=== PATIENT | male | born 1995 | race African-American/Black ===

== ENCOUNTER 2023-06-04 13:26 | Emergency (ER) | payer OTHER ==
[2023-06-04 13:46] VITALS: BP 117/70; PULSE 75; RESP 18; TEMP 99; BMI 23.7
[2023-06-04] MEDS ORDERED: KETOROLAC TROMETHAMINE 30 MG/1 ML VIAL IVPUSH ONE (15:25)
[2023-06-04] MEDS ORDERED: KETOROLAC TROMETHAMINE 30 MG/1 ML VIAL ONE (16:01)
[2023-06-04 16:18] LABS: BASO % 0.6 % (0-2.0); HEMATOCRIT 39.6 % (35.4-49); HEMOGLOBIN 12.8 GM/dL (11.7-16.9); MCH 26.6 pg (25.7-33.7); MCHC 32.3 g/dl (32.0-35.9); MEAN CELL VOLUME 82.3 fl (80-96); MEAN PLT VOLUME 8.7 fl (7.5-11.1); NEUT % 75.4 % (42.8-82.8); PLATELET COUNT 292 10^3/uL (134-434); RBC 4.81 M/mm3 (4.00-5.60); RDW 13.7 % (11.9-15.9); WHITE BLOOD COUNT 9.5 K/mm3 (4.0-10.0)
[2023-06-04 16:44] LABS: POTASSIUM 3.8 mmol/L (3.5-5.1)
[2023-06-04 16:46] LABS: BLOOD UREA NITROGEN 12.2 mg/dL (7-18); CALCIUM 9.1 mg/dL (8.5-10.1)
[2023-06-04 16:47] LABS: ALBUMIN 3.8 g/dl (3.4-5.0)
[2023-06-04 16:50] LABS: CREATININE 1.1 mg/dL (0.55-1.3)
[2023-06-04 16:51] LABS: BILIRUBIN,TOTAL 0.7 mg/dL (0.2-1); TOT PROT 7.3 g/dl (6.4-8.2)
[2023-06-04] MEDS ORDERED: SODIUM CHLORIDE 0.9% 500 ML INFUS.BAG IV ONE (18:53)
[2023-06-04] MEDS ORDERED: DOXYCYCLINE HYCLATE 100 MG CAPSULE PO ONE ×2 (20:21→20:29)
[2023-06-04] MEDS ORDERED: LIDOCAINE HCL/PF 1% SDV 5ML VIAL ONE (20:30)
[2023-06-04 20:48] LABS: EPI CELLS 3 /uL (0-25.1); HYALINE CASTS 1 /uL (0-3.1); PH,URINE 6.5 (5.0-8.0); URINE APPEARANCE CLOUDY; URINE BACTERIA 12 /uL (0-1359); URINE BILIRUBIN NEGATIVE (NEGATIVE); URINE COLOR DK YELLOW; URINE GLUCOSE (UA) NEGATIVE (NEGATIVE); URINE KETONE NEGATIVE (NEGATIVE); URINE LEUK ESTERASE 2+ (NEGATIVE); URINE NITRITE NEGATIVE (NEGATIVE); URINE PROTEIN 1+ (NEGATIVE); URINE RBC 419 /uL (0-23.9); URINE WBC 1660 /uL (0-25.8)
== END 2023-06-04 20:43 | disposition home or self-care (01) ==
LOC: JER 13:26
PROC: 3E0333Z Introduction of Anti-inflammatory into Peripheral Vein, Percutaneous Approach (ICD-10-PCS; principal; 2023-06-04)
PROC: 3E02329 Introduction of Other Anti-infective into Muscle, Percutaneous Approach (ICD-10-PCS; 2023-06-04)
DX: N50.89 Other specified disorders of the male genital organs (principal); N50.812 Left testicular pain; R10.32 Left lower quadrant pain; N45.1 Epididymitis
CPT/HCPCS: 36415; 76870-TC; 80053; 81003; 85025; 87086; 87491; 87591; 87661; 99284-25